=== PATIENT | male | born 1995 | race Hispanic/Latino ===

== ENCOUNTER 2018-01-19 15:04 | Emergency (ER) | payer SELFPAY ==
[2018-01-19] MEDS ORDERED: LIDOCAINE 1%-EPI 1:100,000 20 ML VIAL IJ ONE (16:19)
[2018-01-19] MEDS ORDERED: TETANUS/DIPHTHERIA TOXOID [ADULT] 0.5 ML VIAL IM ONE (16:31)
== END 2018-01-19 16:58 | disposition home or self-care (01) ==
LOC: EDH 15:04
DX: S51.811A Laceration without foreign body of right forearm, initial encounter (principal); W25.XXXA Contact with sharp glass, initial encounter; Y93.89 Activity, other specified; Y92.098 Other place in other non-institutional residence as the place of occurrence of the external cause; Y99.8 Other external cause status
CPT/HCPCS: 12002; 73090; 90471; 90714; 99284; J3490

== ENCOUNTER 2018-01-26 15:25 | Emergency (ER) | payer SELFPAY | END 2018-01-26 15:37 | disposition home or self-care (01) | LOC: EDH 15:25 | DX: S51.811D Laceration without foreign body of right forearm, subsequent encounter (principal); X58.XXXD Exposure to other specified factors, subsequent encounter | CPT/HCPCS: 99281 ==

== ENCOUNTER 2020-08-11 11:30 | Emergency (ER) | payer OTHER ==
[2020-08-11] MEDS ORDERED: IBUPROFEN 600 MG TABLET ONE (11:58)
== END 2020-08-11 12:56 | disposition home or self-care (01) ==
LOC: EDH 11:30
DX: J01.10 Acute frontal sinusitis, unspecified (principal); Z20.828 Contact with and (suspected) exposure to other viral communicable diseases
CPT/HCPCS: 87426

== ENCOUNTER 2023-01-04 18:28 | Emergency (ER) | payer OTHER ==
[~2023-01-04] VITALS: Ht 157.5 cm; Wt 81.6 kg
[2023-01-04] MEDS ORDERED: ACETAMINOPHEN 500 MG TABLET PO ONE (20:00)
[2023-01-04] MEDS ORDERED: NIRM1TAB PO (20:23)
[2023-01-04 20:55] VITALS: BP 124/72
== END 2023-01-04 20:57 | disposition home or self-care (01) ==
LOC: EDH 18:28
DX: U07.1 COVID-19 (principal); B34.9 Viral infection, unspecified; Z90.89 Acquired absence of other organs
CPT/HCPCS: 99283; 87635; 87804 ×2; C9803